=== PATIENT | female | born 1940 | race Caucasian/White ===

== ENCOUNTER 2021-02-06 13:20 | Emergency (ER) | payer MEDICARE, BC ==
[2021-02-06 15:13] LABS: ANION GAP 19.9 mEq/L (7-13); CHLORIDE,CL 102 mmol/L (98-107); SODIUM,NA 138 mmol/L (136-145)
[2021-02-06] MEDS ORDERED: Iopamidol 755 Mg/ML 100 ML Bottle IVPUSH ONE (15:53)
--- NOTE | 2021-02-06 16:37 | EDM.PDOC ---
Scribed by Lena Brink 02/06/21 1636 for Sharron Herbert NP ED HPI GENERAL MEDICAL PROBLEM - General Chief Complaint: Respiratory Problem Stated Complaint: AMBULANCE Time Seen by Provider: 02/06/21 13:40 Source of Information: Reports: Patient, RN, RN Notes Reviewed History Limitations: Reports: No Limitations - History of Present Illness INITIAL COMMENTS - FREE TEXT/NARRATIVE: Patient is an 80-year-old female who presents to ER per [facility] with complaint of increased shortness of breath, body aches and chills. Patient states she was tested positive for COVID on Wednesday, January 29, 2021. Patient states she received immunotherapy on Thursday, February 04, 2021. States she has been feeling worse and worse since then. States she called her PCP and they were out today. She has had chills, body aches, cough and shortness of breath. No fever, nausea, vomiting, diarrhea, and chest pain. Patient states she lives alone. Onset: Gradual Duration: Getting Worse Quality: Reports: Ache Severity: Severe Improves with: Reports: None Worsens with: Reports: None Associated Symptoms: Reports: No Other Symptoms - Related Data Allergies Allergy/AdvReac Type Severity Reaction Status Date / Time No Known Allergies Allergy Verified 02/06/21 13:53 Home Meds: Home Meds Alendronate Sodium 35 mg PO WEEKLY 02/04/21 [History] Benzonatate 100 mg PO ASDIRECTED PRN 02/04/21 [History] Budesonide [Pulmicort Flexhaler] 1 puff INH BID 02/04/21 [History] Calcium Carbonate/Vitamin D3 [Calcium 600-Vit D3 800 Tablet] 1 each PO DAILY 02/04/21 [History] Celecoxib [CeleBREX] 100 mg PO BID 02/04/21 [History] Gabapentin [Neurontin] 200 mg PO TID 02/04/21 [History] Hydrocodone/Acetaminophen [HYDROcodone-Acetaminophen 5-325 MG] 5 mg PO BID 02/04/21 [History] Levothyroxine 75 mcg PO ACBREAKFAST 02/04/21 [History] Lidocaine 5% [Lidoderm 5%] 1 patch TOP ASDIRECTED PRN MDD 700 02/04/21 [History] Omeprazole 20 mg PO DAILY 02/04/21 [History] Zolpidem [Ambien] 5 mg PO BEDTIME 02/04/21 [History] atorvaSTATin [Lipitor] 10 mg PO ASDIRECTED 02/04/21 [History] Past Medical History HEENT History: Reports: Cataract, Impaired Vision Cardiovascular History: Reports: SOB on Exertion Respiratory History: Reports: SOB Genitourinary History: Reports: UTI, Recurrent [employer] COM[employer]IANCE SPECIALIST History: Reports: Endometrial Ablation, Endometriosis Musculoskeletal History: Reports: Arthritis, Back Pain, Chronic, Neck Pain, Chronic, Osteoarthritis, Osteoporosis Endocrine/Metabolic History: Reports: Hypothyroidism, Obesity/BMI 30+, Osteopor osis, Vitamin D Deficiency Oncologic (Cancer) History: Reports: Other (See Below) Other Oncologic History: Endometrial - Infectious Disease History Infectious Disease History: Reports: Chicken Pox, Measles, Mumps, Novel Coronavirus, Rubella - Past Surgical History HEENT Surgical History: Reports: Cataract Surgery GI Surgical History: Reports: Colonoscopy Female Surgical History: Reports: Breast Biopsy, Hysterectomy Social & Family History - Family History Family Medical History: No Pertinent Family History - Tobacco Use Tobacco Use Status *Q: Never Tobacco User - Recreational Drug Use Recreational Drug Use: No ED ROS GENERAL - Review of Systems Review Of Systems: Comprehensive ROS is negative, except as noted in HPI. ED EXAM, GENERAL - Physical Exam Exam: See Below Exam Limited By: No Limitations General Appearance: Alert, Mild Distress Eye Exam: Bilateral Eye: EOMI, Normal Inspection, PERRL Ears: Normal External Exam, Normal Canal, Hearing Grossly Normal, Normal TMs Nose: Normal Inspection, Normal Mucosa, No Blood Throat/Mouth: Normal Inspection, Normal Lips, Normal Teeth, Normal Gums, Normal Oropharynx, Normal Voice, No Airway Compromise Head: Atraumatic, Normocephalic Neck: Normal Inspection, Supple, Non-Tender, Full Range of Motion Respiratory/Chest: No Respiratory Distress, Lungs Clear, Normal Breath Sounds, No Accessory Muscle Use, Chest Non-Tender Cardiovascular: Normal Peripheral Pulses, Regular Rate, Rhythm, No Edema, No Gallop, No JVD, No Murmur, No Rub GI/Abdominal: Normal Bowel Sounds, Soft, Non-Tender, No Organomegaly, No Distention, No Abnormal Bruit, No Mass (Female) Exam: Deferred Rectal (Female) Exam: Deferred Back Exam: Normal Inspection, Full Range of Motion, NT Extremities: Normal Inspection, Normal Range of Motion, Non-Tender, Normal Capillary Refill, No Pedal Edema Neurological: Alert, Oriented, CN II-XII Intact, Normal Cognition, Normal Gait, Normal Reflexes, No Motor/Sensory Deficits Psychiatric: Normal Affect, Normal Mood Skin Exam: Warm, Dry, Intact, Normal Color, No Rash Lymphatic: No Adenopathy #1 Interpretation EKG Date: 02/06/21 Time: 13:32 Rhythm: Other (sinus rhythm) Rate (Beats/Min): 54 EKG Interpretation Comments: LVH with secondary repolarization abnormality. Course - Vital Signs Last Recorded V/S: Last Vital Signs Temp 97.8 F 02/06/21 13:49 Pulse 58 L 02/06/21 18:45 Resp 26 H 02/06/21 18:45 BP 164/57 H 02/06/21 18:45 Pulse Ox 99 02/06/21 18:45 - Orders/Labs/Meds Orders: Active Orders 24 hr Category Date Time Status CULTURE URINE [RM] Stat Lab 02/06/21 15:58 Results Labs: Laboratory Tests 02/06/21 02/06/21 02/06/21 Range/Units 14:40 14:40 14:40 WBC 6.9 (5.0-10.0) 10^3/uL RBC 3.99 L (4.2-5.4) 10^6/uL Hgb 12.1 (12.0-16.0) g/dL Hct 36.8 L (37.0-47.0) % MCV 92.2 (80-100) fL MCH 30.3 (27.0-34.0) pg MCHC 32.9 L (33.0-35.0) g/dL Plt Count 285 (150-450) 10^3/uL Neut % (Auto) 78.1 H (42.2-75.2) % Lymph % (Auto) 13.2 L (20.5-50.1) % [place] % (Auto) 8.0 (2-8) % Eos % (Auto) 0.6 L (1.0-3.0) % Baso % (Auto) 0.1 (0.0-1.0) % D-Dimer, Quantitative 1060 H (0-400) ng/mL Sodium 138 (136-145) mmol/L Potassium 3.9 (3.5-5.1) mmol/L Chloride 102 (98-107) mmol/L Carbon Dioxide 20 L (21-32) mmol/L Anion Gap 19.9 H (7-13) mEq/L BUN 19 H (7-18) mg/dL Creatinine 0.90 (0.55-1.02) mg/dL Est Cr Clr Drug Dosing TNP Estimated GFR (MDRD) > 60 BUN/Creatinine Ratio 21.1 (No establ ref range) Glucose 91 (70-99) mg/dL Calcium 9.2 (8.5-10.1) mg/dL Total Bilirubin 0.4 (0.2-1.0) mg/dL AST 20 (15-37) U/L ALT 24 (14-59) U/L Alkaline Phosphatase 90 (46-116) U/L Lactate Dehydrogenase 255 H (81-234) U/L Troponin I High Sens 26 (<=51) pg/mL C-Reactive Protein 6.1 H (0.0-0.9) mg/dL Total Protein 7.9 (6.4-8.2) g/dL Albumin 3.4 (3.4-5.0) g/dL Globulin 4.5 Albumin/Globulin Ratio 0.8 Urine Color (YELLOW) Urine Appearance (CLEAR) Urine pH (5.0-9.0) Ur Specific [place] (1.005-1.030) Urine Protein (NEGATIVE) Urine Glucose (UA) (NEGATIVE) Urine Ketones (NEGATIVE) Urine Occult Blood (NEGATIVE) Urine Nitrite (NEGATIVE) Urine Bilirubin (NEGATIVE) Urine Urobilinogen (0.2-1.0) mg/dL Ur Leukocyte Esterase (NEGATIVE) Urine RBC (0-5) /HPF Urine WBC (0-5/HPF) /HPF Ur Epithelial Cells (NOT SEEN) /HPF Urine Bacteria (0-FEW/HPF) /HPF 02/06/21 Range/Units 15:58 WBC (5.0-10.0) 10^3/uL RBC (4.2-5.4) 10^6/uL Hgb (12.0-16.0) g/dL Hct (37.0-47.0) % MCV (80-100) fL MCH (27.0-34.0) pg MCHC (33.0-35.0) g/dL Plt Count (150-450) 10^3/uL Neut % (Auto) (42.2-75.2) % Lymph % (Auto) (20.5-50.1) % [place] % (Auto) (2-8) % Eos % (Auto) (1.0-3.0) % Baso % (Auto) (0.0-1.0) % D-Dimer, Quantitative (0-400) ng/mL Sodium (136-145) mmol/L Potassium (3.5-5.1) mmol/L Chloride (98-107) mmol/L Carbon Dioxide (21-32) mmol/L Anion Gap (7-13) mEq/L BUN (7-18) mg/dL Creatinine (0.55-1.02) mg/dL Est Cr Clr Drug Dosing Estimated GFR (MDRD) BUN/Creatinine Ratio (No establ ref range) Glucose (70-99) mg/dL Calcium (8.5-10.1) mg/dL Total Bilirubin (0.2-1.0) mg/dL AST (15-37) U/L ALT (14-59) U/L Alkaline Phosphatase (46-116) U/L Lactate Dehydrogenase (81-234) U/L Troponin I High Sens (<=51) pg/mL C-Reactive Protein (0.0-0.9) mg/dL Total Protein (6.4-8.2) g/dL Albumin (3.4-5.0) g/dL Globulin Albumin/Globulin Ratio Urine Color [place] (YELLOW) Urine Appearance Cloudy (CLEAR) Urine pH 5.5 (5.0-9.0) Ur Specific [place] 1.020 (1.005-1.030) Urine Protein 100 H (NEGATIVE) Urine Glucose (UA) 100 H (NEGATIVE) Urine Ketones 80 H (NEGATIVE) Urine Occult Blood Trace-intact H (NEGATIVE) Urine Nitrite Positive H (NEGATIVE) Urine Bilirubin Small H (NEGATIVE) Urine Urobilinogen 1.0 (0.2-1.0) mg/dL Ur Leukocyte Esterase Large H (NEGATIVE) Urine RBC 5-10 H (0-5) /HPF Urine WBC Semi-packed H (0-5/HPF) /HPF Ur Epithelial Cells Few (NOT SEEN) /HPF Urine Bacteria Many H (0-FEW/HPF) /HPF Meds: Medications Discontinued Medications Generic Name Dose Route Start Last Admin Trade Name Freq PRN Reason Stop Dose Admin Sodium Chloride 1,000 mls @ 500 mls/hr 02/06/21 16:53 02/06/21 18:50 Normal Saline IV 02/06/21 18:52 999 mls/hr .BOLUS ONE Infusion Levofloxacin/Dextrose 500 mg/ 100 mls @ 100 mls/hr 02/06/21 16:53 02/06/21 17:15 Premix IV 02/06/21 17:52 100 mls/hr ONETIME ONE Administration Iopamidol 100 ml 02/06/21 15:53 02/06/21 16:09 Iopamidol 755 Mg/Ml 100 Ml Bottle IVPUSH 02/06/21 15:54 63 ml ONETIME ONE Administration Methylprednisolone Sodium Succinate 125 mg 02/06/21 16:53 02/06/21 17:12 Methylprednisolone Sodium Succinate 125 Mg/2 Ml Sdv IVPUSH 02/06/21 16:54 125 mg ONETIME ONE Administration - Radiology Interpretation Free Text/Narrative:: Chest CT with contrast: Covid Pneumonia No PE See rad report Departure - Departure Time of Disposition: 19:56 Disposition: Home, Self-Care 01 Condition: Fair Clinical Impression: Pneumonia due to COVID-19 virus UTI (urinary tract infection) Qualifiers: Urinary tract infection type: acute cystitis Hematuria presence: with hematuria Qualified Code(s): N30.01 - Acute cystitis with hematuria - Discharge Information *PRESCRIPTION DRUG MONITORING PROGRAM REVIEWED*: No *COPY OF PRESCRIPTION DRUG MONITORING REPORT IN PATIENT LISA: No Instructions: Urinary Tract Infection, Adult, [id number], Community-Acquired Pneumonia, Adult, [id number], COVID-19: What to Do If You Are Sick- [facility] (07/31/2020) Forms: ED Department Discharge Additional Instructions: Rx: Levaquin 500 mg orally once daily x7 days Prednisone 20 mg 2 tablets orally once daily for 5 days Both medications listed above may be started tomorrow, 02/07/2021 Drink plenty of water Follow-up with your primary care provider Return to the ER with any worsening of symptoms - My Orders Last 24 Hours: My Active Orders 02/06/21 15:58 CULTURE URINE [RM] Stat - Assessment/Plan Last 24 Hours: My Active Orders 02/06/21 15:58 CULTURE URINE [RM] Stat I have read and agree with the documentation that has been completed regarding this visit. By signing this record, I attest that the documentation was completed in my physical presence and is an accurate record of the encounter.
--- NOTE | 2021-02-06 16:46 | CT ---
EXAMINATION: Chest w Cont SEX: Female AGE: 80 years CLINICAL HISTORY: 80-year-old 158 pound female with elevated serum D dimer (1080) and positive COVID19 test. Scan technique: Volume acquisition of data from the chest (bony thorax, lungs and mediastinum) obtained with the patient lying supine on the Siemens multislice scanner [place], [place]. All data archived in the PACS system for storage, reformatting axial/sagittal/coronal planes and study. Interpretation: Abnormal. 1. *Multiple patchy "groundglass" interstitial lung densities identified throughout the periphery of both lung bal[place] (greatest in the bases) characteristic of COVID19 vasculitis/pneumonitis. 2. No intraluminal filling defects or thrombus identified in the pulmonary artery circulation. No peripheral pleural-based wedge shaped ([place]) infarcts. No focal lobar oligemia. No dependent pleural effusions. 3. Normal cardiac silhouette for age. No pericardial effusions. No pulmonary vascular congestion or alveolar edema. 4. No suspicious lung mass or hilar/mediastinal lymphadenopathy. 5. No alveolar infiltrates, air bronchograms, atelectasis or collapse. 6. No pneumothorax or pneumomediastinum. Midline tracheal bronchial airway unremarkable. CONCLUSION: Abnormal CT pattern consistent with COVID pneumonia. No sign of mainstem pulmonary artery embolism or thrombus. No heart failure, alveolar infiltrate, atelectasis or collapse.
[2021-02-06] MEDS ORDERED: Levofloxacin/Dextrose 5%-Water 500 MG in Premix Bag 1 BAG IV ONE (16:53)
[2021-02-06] MEDS ORDERED: methylPREDNISolone Sodium Succinate 125 MG/2 ML SDV IVPUSH ONE (16:53)
[2021-02-06] MEDS ORDERED: Sodium Chloride 0.9% 1,000 ML IV ONE (16:53)
== END 2021-02-06 19:50 | disposition home or self-care (01) ==
LOC: DL.ED 13:20
DX: U07.1 COVID-19 (principal); J12.82 Pneumonia due to coronavirus disease 2019; N30.01 Acute cystitis with hematuria; E03.9 Hypothyroidism, unspecified; E66.9 Obesity, unspecified; Z68.30 Body mass index [BMI] 30.0-30.9, adult; Z79.899 Other long term (current) drug therapy
CPT/HCPCS: 36415; 71260; 80053; 81001; 83615; 84484; 85025; 85379; 86140; 87086; 87088; 87186; 93005; 96365; 96375; 99285; J1956; J2930; J7030; Q9967

== ENCOUNTER 2024-02-27 19:49 | Emergency (ER) | payer MEDICARE, BC ==
[2024-02-27] MEDS: Ondansetron 4 MG/2 ML SDV IVPUSH ONE (20:13)
[2024-02-27] MEDS: Sodium Chloride 0.9% 1,000 ML IV ONE (20:14)
[2024-02-27] MEDS: Morphine 4 MG/ML Syringe IVPUSH ONE (20:14)
[2024-02-27 20:19] LABS: BASOPHILS PERCENT AUTO 0.1 % (0.0-1.0); EOSINOPHILS PERCENT AUTO 0.3 % (1.0-3.0); HEMATOCRIT 37.4 % (37.0-47.0); HEMOGLOBIN 11.8 g/dL (12.0-16.0); LYMPHOCYTES PERCENT AUTO 10.7 % (20.5-50.1); MEAN CORPUSCULAR HEMOGLOBIN 29.2 pg (27.0-34.0); MEAN CORPUSCULAR HGB CONC 31.6 g/dL (33.0-35.0); MEAN CORPUSCULAR VOLUME 92.6 fL (80-100); NEUTROPHILS PERCENT AUTO 80.9 % (42.2-75.2); PLATELET COUNT,PLT 367 10^3/uL (150-450); RED BLOOD CELL COUNT 4.04 10^6/uL (4.2-5.4); WHITE BLOOD CELL COUNT,WBC 16.5 10^3/uL (5.0-10.0)
[2024-02-27 20:31] LABS: LACTIC ACID 1.5 mmol/L (0.4-2.0)
[2024-02-27 20:37] LABS: ALANINE AMINOTRANSFERASE,ALT 19 U/L (14-59); ALBUMIN 2.8 g/dL (3.4-5.0); ALKALINE PHOSPHATASE 104 U/L (46-116); ASPARTATE AMNIOTRANSFERASE,AST 14 U/L (15-37); BILIRUBIN TOTAL 0.6 mg/dL (0.2-1.0); BLOOD UREA NITROGEN,BUN 17 mg/dL (7-18); BUN/CREATININE RATIO 18.5 (No establ ref range); CALCIUM 8.9 mg/dL (8.5-10.1); CARBON DIOXIDE,CO2 25 mmol/L (21-32); CHLORIDE,CL 100 mmol/L (98-107); CREATININE 0.92 mg/dL (0.55-1.02); GLUCOSE RANDOM 106 mg/dL (70-99); SODIUM,NA 137 mmol/L (136-145)
[2024-02-27 20:40] LABS: A/G RATIO 0.67; ESTIMATED GFR 61 mL/min (>=60); ETHANOL BLOOD MEDICAL < 3 mg/dL (0)
[2024-02-27] MEDS: Iopamidol 612 MG/ML 100 ML Bottle IVPUSH ONE (20:50)
[2024-02-27 21:23] LABS: APPEARANCE,URINE CLEAR (CLEAR); BILIRUBIN,URINE NEGATIVE (NEGATIVE); COLOR,URINE YELLOW (YELLOW); GLUCOSE,URINE NEGATIVE (NEGATIVE); KETONES,URINE NEGATIVE (NEGATIVE); LEUKOCYTE ESTERASE,URINE NEGATIVE (NEGATIVE); NITRITE,URINE NEGATIVE (NEGATIVE); OCCULT BLOOD,URINE NEGATIVE (NEGATIVE); PH,URINE 6.5 (5.0-9.0); PROTEIN,URINE NEGATIVE (NEGATIVE); UROBILINOGEN,URINE 0.2 mg/dL (0.2-1.0)
[2024-02-27] MEDS: Amoxicillin/Clavulanate K 875-125 MG Tab PO ONE (23:19)
[2024-02-27] MEDS: Take Home: Acetaminophen/HYDROcodone 325-5 MG, 5 Tab Pack PO ONE (23:20)
== END 2024-02-27 23:32 | disposition home or self-care (01) ==
LOC: DL.ED 19:49
DX: K57.32 Diverticulitis of large intestine without perforation or abscess without bleeding (principal); E03.9 Hypothyroidism, unspecified; E66.9 Obesity, unspecified; Z79.899 Other long term (current) drug therapy
CPT/HCPCS: 36415; 74177; 80053; 80307; 81003; 83605; 85025; 87040; 94762; 96361; 96374; 96375; 99284; 99285-25; A9270-GY; J2270; J2405; J7030; Q9967

== ENCOUNTER 2024-02-29 15:35 | Inpatient (IN) | payer MEDICARE, BC ==
[2024-02-29] MEDS: Iopamidol 612 MG/ML 100 ML Bottle IVPUSH ONE (16:29)
[2024-02-29] MEDS: Ondansetron 4 MG/2 ML SDV IVPUSH ONE (16:58)
[2024-02-29] MEDS: fentaNYL 100 MCG/2 ML SDV IVPUSH ONE (16:58)
[2024-02-29 17:02] LABS: BASOPHILS PERCENT AUTO 0.1 % (0.0-1.0); EOSINOPHILS PERCENT AUTO 0.9 % (1.0-3.0); HEMATOCRIT 35.8 % (37.0-47.0); HEMOGLOBIN 11.1 g/dL (12.0-16.0); MEAN CORPUSCULAR HEMOGLOBIN 29.4 pg (27.0-34.0); MEAN CORPUSCULAR VOLUME 94.7 fL (80-100); PLATELET COUNT,PLT 367 10^3/uL (150-450); RED BLOOD CELL COUNT 3.78 10^6/uL (4.2-5.4); WHITE BLOOD CELL COUNT,WBC 18.2 10^3/uL (5.0-10.0)
[2024-02-29] MEDS: Sodium Chloride 0.9% 500 ML IV ONE (17:17)
[2024-02-29 17:24] LABS: ALANINE AMINOTRANSFERASE,ALT 15 U/L (14-59); ALBUMIN 2.4 g/dL (3.4-5.0); ALKALINE PHOSPHATASE 120 U/L (46-116); ANION GAP 17.2 mEq/L (7-13); ASPARTATE AMNIOTRANSFERASE,AST 13 U/L (15-37); BILIRUBIN TOTAL 0.5 mg/dL (0.2-1.0); BLOOD UREA NITROGEN,BUN 17 mg/dL (7-18); BUN/CREATININE RATIO 18.1 (No establ ref range); CALCIUM 9.1 mg/dL (8.5-10.1); CARBON DIOXIDE,CO2 23 mmol/L (21-32); CHLORIDE,CL 103 mmol/L (98-107); CREATININE 0.94 mg/dL (0.55-1.02); GLUCOSE RANDOM 68 mg/dL (70-99); LIPASE 12 U/L (16-77); MAGNESIUM 2.5 mg/dL (1.8-2.4); POTASSIUM,K 4.2 mmol/L (3.5-5.1); PROTEIN TOTAL,TP 6.9 g/dL (6.4-8.2); SODIUM,NA 139 mmol/L (136-145)
[2024-02-29 17:25] LABS: A/G RATIO 0.53; ESTIMATED GFR 60 mL/min (>=60)
[2024-02-29 17:34] LABS: C-REACTIVE PROTEIN > 25.00 ng/dL (<=0.50)
[2024-02-29] MEDS: metroNIDAZOLE/Normal Saline 500 MG in Premix Bag 1 BAG IV ONE (17:46)
[2024-02-29] MEDS ORDERED: Docusate Sodium 100 MG Cap PO PRN (19:57)
[2024-02-29] MEDS ORDERED: Acetaminophen 325 MG Tab PO PRN (19:57)
[2024-02-29] MEDS ORDERED: Bisacodyl 5 MG Tab PO PRN (19:57)
[2024-02-29] MEDS: Ciprofloxacin in D5W 400 MG in Premix Bag 1 BAG IV ONE ×2 (20:05→20:08)
[2024-02-29] MEDS ORDERED: Zolpidem 5 MG Tab PO PRN (20:11)
[2024-02-29] MEDS: HYDROmorphone 0.5 MG/0.5 ML Syringe IVPUSH PRN (20:40)
[2024-02-29] MEDS: Ondansetron 4 MG/2 ML SDV IVPUSH PRN (21:17)
[2024-02-29] MEDS: Sodium Chloride 0.9% 1,000 ML IV SCH (22:03)
[2024-03-01] MEDS: metroNIDAZOLE/Normal Saline 500 MG in Premix Bag 1 BAG IV SCH (01:00)
[2024-03-01] MEDS: HYDROmorphone 1 MG/ML Syringe IVPUSH PRN (02:01)
[2024-03-01] MEDS: Metoclopramide 10 MG/2 ML SDV IVPUSH PRN (02:02)
[2024-03-01] MEDS: Metoclopramide 10 MG/2 ML SDV ONE (02:05)
[2024-03-01] MEDS: Ketorolac 30 MG/ML SDV IVPUSH PRN (02:10)
[2024-03-01 06:31] LABS: HEMATOCRIT 31.7 % (37.0-47.0); HEMOGLOBIN 9.8 g/dL (12.0-16.0); MEAN CORPUSCULAR HEMOGLOBIN 29.3 pg (27.0-34.0); MEAN CORPUSCULAR HGB CONC 30.9 g/dL (33.0-35.0); MEAN CORPUSCULAR VOLUME 94.9 fL (80-100); PLATELET COUNT,PLT 410 10^3/uL (150-450); RED BLOOD CELL COUNT 3.34 10^6/uL (4.2-5.4); WHITE BLOOD CELL COUNT,WBC 22.6 10^3/uL (5.0-10.0)
[2024-03-01 06:42] LABS: ANION GAP 19.9 mEq/L (7-13); BASOPHILS PERCENT AUTO 0.1 % (0.0-1.0); BLOOD UREA NITROGEN,BUN 14 mg/dL (7-18); CALCIUM 8.4 mg/dL (8.5-10.1); CARBON DIOXIDE,CO2 18 mmol/L (21-32); CHLORIDE,CL 104 mmol/L (98-107); CREATININE 0.89 mg/dL (0.55-1.02); EOSINOPHILS PERCENT AUTO 0.3 % (1.0-3.0); EST CRCL DRUG DOSING (CG) 38.92 mL/min; GLUCOSE RANDOM 86 mg/dL (70-99); LYMPHOCYTES PERCENT AUTO 5.4 % (20.5-50.1); MONOCYTES PERCENT AUTO 9.1 % (2-8); NEUTROPHILS PERCENT AUTO 85.1 % (42.2-75.2); POTASSIUM,K 3.9 mmol/L (3.5-5.1); SODIUM,NA 138 mmol/L (136-145)
[2024-03-01 06:43] LABS: C-REACTIVE PROTEIN > 25.00 ng/dL (<=0.50); ESTIMATED GFR 64 mL/min (>=60)
[2024-03-01 06:57] LABS: EOSINOPHILS PERCENT MAN 3 % (1-3); LYMPHOCYTES PERCENT MAN 7 % (20-50); MONOCYTES PERCENT MAN 12 % (2-8); SEG NEUTROPHILS PERCENT MAN 78 % (42-75)
[2024-03-01] MEDS: Saccharomyces Boulardii (Probiotic) 250 MG Cap PO SCH (07:49)
[2024-03-01] MEDS: Furosemide 40 MG Tab PO SCH (07:50)
[2024-03-01] MEDS: Ferrous Sulfate 325 MG Tab PO SCH (07:50)
[2024-03-01] MEDS: atorvaSTATin 10 MG Tab PO SCH (07:50)
[2024-03-01] MEDS: Omeprazole 20 MG Cap.CR PO SCH (07:50)
[2024-03-01] MEDS: Celecoxib 100 MG Cap PO SCH (07:51)
[2024-03-01] MEDS: Enoxaparin 40 MG/0.4 ML Syringe SUBCUT SCH (07:51)
[2024-03-01] MEDS: Gabapentin 300 MG Cap PO SCH (07:51)
[2024-03-01] MEDS: Ciprofloxacin in D5W 400 MG in Premix Bag 1 BAG IV SCH (07:51)
[2024-03-01] MEDS: Aspirin 81 MG Tab.Chew PO SCH (07:51)
[2024-03-01] MEDS: Budesonide 0.5 MG/2 ML Neb Susp INH SCH (07:52)
[2024-03-01] MEDS: Lidocaine 5% 700 MG Patch TOP SCH (08:17)
[2024-03-01] MEDS: Dextrose 5% in Water 1,000 ML IV SCH (08:30)
[2024-03-01] MEDS: Alendronate Sodium [Alendronate Sodium] 35 MG Tablet PO SCH (08:37)
[2024-03-01] MEDS ORDERED: Acetaminophen/HYDROcodone 325-5 MG Tab PO SCH (09:00)
[2024-03-01] MEDS: Sodium Chloride 0.9% 10 ML Syringe FLUSH PRN (16:40)
[2024-03-01] MEDS: Zolpidem 5 MG Tab PO SCH (21:49)
[2024-03-02] MEDS: Levothyroxine 75 MCG Tab PO SCH (04:15)
[2024-03-02 08:08] LABS: HEMATOCRIT 27.2 % (37.0-47.0); HEMOGLOBIN 8.6 g/dL (12.0-16.0); MEAN CORPUSCULAR HEMOGLOBIN 29.4 pg (27.0-34.0); MEAN CORPUSCULAR HGB CONC 31.6 g/dL (33.0-35.0); MEAN CORPUSCULAR VOLUME 92.8 fL (80-100); PLATELET COUNT,PLT 374 10^3/uL (150-450); RED BLOOD CELL COUNT 2.93 10^6/uL (4.2-5.4); WHITE BLOOD CELL COUNT,WBC 20.4 10^3/uL (5.0-10.0)
[2024-03-02 08:12] LABS: BASOPHILS PERCENT AUTO 0.1 % (0.0-1.0); EOSINOPHILS PERCENT AUTO 0.8 % (1.0-3.0); LYMPHOCYTES PERCENT AUTO 6.2 % (20.5-50.1); MONOCYTES PERCENT AUTO 10.3 % (2-8); NEUTROPHILS PERCENT AUTO 82.6 % (42.2-75.2)
[2024-03-02 08:23] LABS: LYMPHOCYTES PERCENT MAN 9 % (20-50); MONOCYTES PERCENT MAN 8 % (2-8); SEG NEUTROPHILS PERCENT MAN 83 % (42-75)
[2024-03-02 08:29] LABS: A/G RATIO 0.55; ALBUMIN 2.1 g/dL (3.4-5.0); BILIRUBIN TOTAL 0.3 mg/dL (0.2-1.0); BUN/CREATININE RATIO 8.7 (No establ ref range); C-REACTIVE PROTEIN 23.13 ng/dL (<=0.50); CREATININE 1.03 mg/dL (0.55-1.02); EST CRCL DRUG DOSING (CG) 33.63 mL/min; MAGNESIUM 1.9 mg/dL (1.8-2.4); PROTEIN TOTAL,TP 5.9 g/dL (6.4-8.2)
[2024-03-02] MEDS: Potassium Chloride 10 MEQ Tab.ER PO ONE (11:16)
[2024-03-02] MEDS: Acetaminophen/HYDROcodone 325-5 MG Tab PO PRN (14:05)
[2024-03-03 06:44] LABS: ALBUMIN 2.1 g/dL (3.4-5.0); BILIRUBIN TOTAL 0.3 mg/dL (0.2-1.0); C-REACTIVE PROTEIN 21.5 ng/dL (<=0.50); CALCIUM 8.3 mg/dL (8.5-10.1); CREATININE 0.9 mg/dL (0.55-1.02); EST CRCL DRUG DOSING (CG) 38.49 mL/min
[2024-03-03 06:48] LABS: HEMATOCRIT 29.5 % (37.0-47.0); HEMOGLOBIN 9.2 g/dL (12.0-16.0); MEAN CORPUSCULAR HEMOGLOBIN 29.2 pg (27.0-34.0); MEAN CORPUSCULAR HGB CONC 31.2 g/dL (33.0-35.0); MEAN CORPUSCULAR VOLUME 93.7 fL (80-100); PLATELET COUNT,PLT 393 10^3/uL (150-450); RED BLOOD CELL COUNT 3.15 10^6/uL (4.2-5.4); WHITE BLOOD CELL COUNT,WBC 18.1 10^3/uL (5.0-10.0)
[2024-03-03 06:51] LABS: BASOPHILS PERCENT AUTO 0.1 % (0.0-1.0); EOSINOPHILS PERCENT AUTO 0.8 % (1.0-3.0); LYMPHOCYTES PERCENT AUTO 6.3 % (20.5-50.1); MONOCYTES PERCENT AUTO 12.4 % (2-8); NEUTROPHILS PERCENT AUTO 80.4 % (42.2-75.2)
[2024-03-03 06:56] LABS: A/G RATIO 0.54
[2024-03-03 07:44] LABS: BAND PERCENT MAN 2 %; EOSINOPHILS PERCENT MAN 1 % (1-3); LYMPHOCYTES PERCENT MAN 14 % (20-50); MONOCYTES PERCENT MAN 8 % (2-8); SEG NEUTROPHILS PERCENT MAN 75 % (42-75)
[2024-03-03] MEDS ORDERED: Budesonide 0.5 MG/2 ML Neb Susp INH SCH (09:00)
[2024-03-03] MEDS: Iopamidol 612 MG/ML 100 ML Bottle IVPUSH ONE ×2 (12:26→12:27)
[2024-03-04 06:47] LABS: EOSINOPHILS PERCENT AUTO 1.2 % (1.0-3.0); HEMATOCRIT 29.7 % (37.0-47.0); HEMOGLOBIN 9.3 g/dL (12.0-16.0); LYMPHOCYTES PERCENT AUTO 8.9 % (20.5-50.1); MEAN CORPUSCULAR HEMOGLOBIN 29.1 pg (27.0-34.0); MEAN CORPUSCULAR HGB CONC 31.3 g/dL (33.0-35.0); MEAN CORPUSCULAR VOLUME 92.8 fL (80-100); MONOCYTES PERCENT AUTO 12.3 % (2-8); NEUTROPHILS PERCENT AUTO 77.5 % (42.2-75.2); PLATELET COUNT,PLT 416 10^3/uL (150-450); WHITE BLOOD CELL COUNT,WBC 14.7 10^3/uL (5.0-10.0)
[2024-03-04 06:55] LABS: BASOPHILS PERCENT AUTO 0.1 % (0.0-1.0)
[2024-03-04 07:14] LABS: ALBUMIN 2.2 g/dL (3.4-5.0); ANION GAP 13.1 mEq/L (7-13); BILIRUBIN TOTAL 0.3 mg/dL (0.2-1.0); BUN/CREATININE RATIO 9.7 (No establ ref range); C-REACTIVE PROTEIN 16.84 ng/dL (<=0.50); CALCIUM 8.5 mg/dL (8.5-10.1); CREATININE 0.93 mg/dL (0.55-1.02); EST CRCL DRUG DOSING (CG) 37.25 mL/min; POTASSIUM,K 4.1 mmol/L (3.5-5.1)
[2024-03-04 07:18] LABS: A/G RATIO 0.58
[2024-03-04] MEDS: Furosemide 40 MG Tab PO SCH (08:09)
[2024-03-05 06:46] LABS: HEMOGLOBIN 10.2 g/dL (12.0-16.0); MEAN CORPUSCULAR HEMOGLOBIN 29.5 pg (27.0-34.0); MEAN CORPUSCULAR HGB CONC 31.9 g/dL (33.0-35.0); MEAN CORPUSCULAR VOLUME 92.5 fL (80-100); PLATELET COUNT,PLT 473 10^3/uL (150-450); RED BLOOD CELL COUNT 3.46 10^6/uL (4.2-5.4)
[2024-03-05 06:54] LABS: BASOPHILS PERCENT AUTO 0.2 % (0.0-1.0); EOSINOPHILS PERCENT AUTO 1.2 % (1.0-3.0); LYMPHOCYTES PERCENT AUTO 11.3 % (20.5-50.1); MONOCYTES PERCENT AUTO 14.1 % (2-8); NEUTROPHILS PERCENT AUTO 73.2 % (42.2-75.2)
[2024-03-05 07:03] LABS: ALBUMIN 2.3 g/dL (3.4-5.0); ANION GAP 14.7 mEq/L (7-13); BILIRUBIN TOTAL 0.3 mg/dL (0.2-1.0); BUN/CREATININE RATIO 10.8 (No establ ref range); C-REACTIVE PROTEIN 10.89 ng/dL (<=0.50); CALCIUM 8.5 mg/dL (8.5-10.1); CREATININE 1.2 mg/dL (0.55-1.02); EST CRCL DRUG DOSING (CG) 28.87 mL/min; MAGNESIUM 1.7 mg/dL (1.8-2.4); POTASSIUM,K 3.7 mmol/L (3.5-5.1)
[2024-03-05 07:31] LABS: A/G RATIO 0.62
[2024-03-05 08:03] LABS: BAND PERCENT MAN 7 %; LYMPHOCYTES PERCENT MAN 15 % (20-50); MONOCYTES PERCENT MAN 11 % (2-8); NRBC MANUAL 1 /100WBC; SEG NEUTROPHILS PERCENT MAN 67 % (42-75)
[2024-03-05] MEDS: Sodium Chloride 0.9% 1,000 ML IV SCH (12:02)
[2024-03-06] MEDS: Simethicone 80 MG Tab.Chew PO PRN (02:58)
[2024-03-06 06:56] LABS: BASOPHILS PERCENT AUTO 0.2 % (0.0-1.0); HEMATOCRIT 32.1 % (37.0-47.0); HEMOGLOBIN 10.2 g/dL (12.0-16.0); LYMPHOCYTES PERCENT AUTO 12.5 % (20.5-50.1); MEAN CORPUSCULAR HEMOGLOBIN 29.3 pg (27.0-34.0); MEAN CORPUSCULAR HGB CONC 31.8 g/dL (33.0-35.0); MEAN CORPUSCULAR VOLUME 92.2 fL (80-100); MONOCYTES PERCENT AUTO 11.6 % (2-8); NEUTROPHILS PERCENT AUTO 74.7 % (42.2-75.2); PLATELET COUNT,PLT 491 10^3/uL (150-450); RED BLOOD CELL COUNT 3.48 10^6/uL (4.2-5.4)
[2024-03-06 07:23] LABS: ALBUMIN 2.3 g/dL (3.4-5.0); ANION GAP 13.7 mEq/L (7-13); BILIRUBIN TOTAL 0.3 mg/dL (0.2-1.0); BUN/CREATININE RATIO 10.8 (No establ ref range); C-REACTIVE PROTEIN 7.48 ng/dL (<=0.50); CALCIUM 8.5 mg/dL (8.5-10.1); CREATININE 1.02 mg/dL (0.55-1.02); EST CRCL DRUG DOSING (CG) 33.96 mL/min; MAGNESIUM 1.6 mg/dL (1.8-2.4); POTASSIUM,K 3.7 mmol/L (3.5-5.1)
[2024-03-06 07:24] LABS: A/G RATIO 0.62
[2024-03-06] MEDS: Ciprofloxacin 500 MG Tab PO ONE (10:26)
[2024-03-06] MEDS: Magnesium Oxide 400 MG Tab PO ONE (10:26)
[2024-03-06] MEDS: metroNIDAZOLE 250 MG Tab PO ONE (10:26)
== END 2024-03-06 12:35 | disposition home or self-care (01) | DRG 392 ==
LOC: DL.ED 15:35 → DL.MS 18:29
PROVIDERS: ADMIT Internal Medicine; ATTEND Internal Medicine
DX: K57.32 Diverticulitis of large intestine without perforation or abscess without bleeding (principal); Z66 Do not resuscitate; N28.9 Disorder of kidney and ureter, unspecified; H54.7 Unspecified visual loss; M19.90 Unspecified osteoarthritis, unspecified site; M54.2 Cervicalgia; G89.29 Other chronic pain; Z79.890 Hormone replacement therapy; Z79.891 Long term (current) use of opiate analgesic; Z79.2 Long term (current) use of antibiotics; Z68.27 Body mass index [BMI] 27.0-27.9, adult; M81.0 Age-related osteoporosis without current pathological fracture; E03.9 Hypothyroidism, unspecified; E66.9 Obesity, unspecified; K52.9 Noninfective gastroenteritis and colitis, unspecified; D72.825 Bandemia; G47.00 Insomnia, unspecified; E83.52 Hypercalcemia; E83.42 Hypomagnesemia; E87.6 Hypokalemia; R79.89 Other specified abnormal findings of blood chemistry; E11.65 Type 2 diabetes mellitus with hyperglycemia; Z79.899 Other long term (current) drug therapy; Z87.440 Personal history of urinary (tract) infections; Z68.25 Body mass index [BMI] 25.0-25.9, adult; Z86.16 Personal history of COVID-19; Z98.49 Cataract extraction status, unspecified eye; Z90.710 Acquired absence of both cervix and uterus; Z98.890 Other specified postprocedural states
CPT/HCPCS: 36415; 74177; 80053; 83605; 83690; 83735; 84484; 85025; 86140; 96365; 96375; 99285; J1836; J2405; J3010; J7040; Q9967; 80048; 82947; 94640; 99223; 99232; 99233; 99238; A9270-GY; J0744; J1171; J1650; J1885; J2765; J3490; J7030; J7060

== ENCOUNTER 2024-03-06 16:39 | Inpatient (IN) | payer MEDICARE, BC ==
[2024-03-06] MEDS: Sodium Chloride 0.9% 1,000 ML IV ONE (17:20)
[2024-03-06] MEDS: Diltiazem 25 MG/5 ML SDV IVPUSH ONE (17:28)
[2024-03-06 17:32] LABS: HEMATOCRIT 30.5 % (37.0-47.0); HEMOGLOBIN 9.8 g/dL (12.0-16.0); MEAN CORPUSCULAR HEMOGLOBIN 29.3 pg (27.0-34.0); MEAN CORPUSCULAR HGB CONC 32.1 g/dL (33.0-35.0); MEAN CORPUSCULAR VOLUME 91.3 fL (80-100); PLATELET COUNT,PLT 502 10^3/uL (150-450); RED BLOOD CELL COUNT 3.34 10^6/uL (4.2-5.4); WHITE BLOOD CELL COUNT,WBC 13.6 10^3/uL (5.0-10.0)
[2024-03-06] MEDS: Sodium Chloride 0.9% 10 ML Syringe FLUSH PRN (17:33)
[2024-03-06 17:36] LABS: BASOPHILS PERCENT AUTO 0.2 % (0.0-1.0); EOSINOPHILS PERCENT AUTO 0.6 % (1.0-3.0); LYMPHOCYTES PERCENT AUTO 10.1 % (20.5-50.1); MONOCYTES PERCENT AUTO 10.7 % (2-8); NEUTROPHILS PERCENT AUTO 78.4 % (42.2-75.2)
[2024-03-06 17:47] LABS: BAND PERCENT MAN 2 %; EOSINOPHILS PERCENT MAN 1 % (1-3); INR 1.1 (0.9-1.2); LYMPHOCYTES PERCENT MAN 11 % (20-50); MONOCYTES PERCENT MAN 8 % (2-8); PROTHROMBIN TIME 11.2 SEC (9.0-12.0); SEG NEUTROPHILS PERCENT MAN 78 % (42-75)
[2024-03-06 17:53] LABS: A/G RATIO 0.71; ALBUMIN 2.5 g/dL (3.4-5.0); ANION GAP 17.3 mEq/L (7-13); BILIRUBIN TOTAL 0.3 mg/dL (0.2-1.0); BUN/CREATININE RATIO 10.8 (No establ ref range); C-REACTIVE PROTEIN 6.88 ng/dL (<=0.50); CALCIUM 8.8 mg/dL (8.5-10.1); CREATININE 1.02 mg/dL (0.55-1.02); EST CRCL DRUG DOSING (CG) 29.49 mL/min; MAGNESIUM 1.5 mg/dL (1.8-2.4); POTASSIUM,K 3.3 mmol/L (3.5-5.1)
[2024-03-06 17:56] LABS: LACTIC ACID 1.3 mmol/L (0.4-2.0)
[2024-03-06] MEDS: Magnesium Sulfate/Water Premix 2 GM in Premix Bag 1 BAG IV ONE (18:11)
[2024-03-06] MEDS: Potassium Chloride 10 MEQ Tab.ER PO ONE (18:11)
[2024-03-06 18:13] LABS: APPEARANCE,URINE SLIGHTLY CLOUDY (CLEAR); BILIRUBIN,URINE NEGATIVE (NEGATIVE); COLOR,URINE YELLOW (YELLOW); GLUCOSE,URINE NEGATIVE (NEGATIVE); KETONES,URINE 15 (NEGATIVE); LEUKOCYTE ESTERASE,URINE TRACE (NEGATIVE); NITRITE,URINE NEGATIVE (NEGATIVE); OCCULT BLOOD,URINE NEGATIVE (NEGATIVE); PROTEIN,URINE NEGATIVE (NEGATIVE); UROBILINOGEN,URINE 0.2 mg/dL (0.2-1.0)
[2024-03-06 18:22] LABS: BACTERIA,URINE FEW /HPF (0-FEW/HPF); EPITHELIAL CELLS,URINE FEW /HPF (NOT SEEN); YEAST,URINE FEW /HPF (NOT SEEN)
[2024-03-06 18:23] LABS: RBC,URINE 0-5 /HPF (0-5)
[2024-03-06 19:00] LABS: T4 FREE 1.4 ng/dL (0.76-1.46); TSH ULTRASENSITIVE 4.27 uIU/mL (0.36-3.74)
[2024-03-06] MEDS ORDERED: Acetaminophen 325 MG Tab PO PRN (19:53)
[2024-03-06] MEDS ORDERED: Prochlorperazine 25 MG Supp RECTAL PRN (20:05)
[2024-03-06] MEDS ORDERED: Promethazine 25 MG Supp RECTAL PRN (20:05)
[2024-03-06] MEDS ORDERED: Albuterol/Ipratropium 3.0-0.5 MG/3 ML Neb Soln NEB PRN (20:05)
[2024-03-06] MEDS ORDERED: Ondansetron 4 MG/2 ML SDV IVPUSH PRN (20:05)
[2024-03-06] MEDS ORDERED: Naloxone 2 MG/2 ML Syringe IVPUSH PRN (20:05)
[2024-03-06] MEDS: Remove Patch- LIDOCAINE PATCH TRDERM SCH (20:10)
[2024-03-06] MEDS: Amoxicillin/Clavulanate K 875-125 MG Tab PO SCH (20:20)
[2024-03-06] MEDS: Celecoxib 100 MG Cap PO SCH (20:20)
[2024-03-06] MEDS: Saccharomyces Boulardii (Probiotic) 250 MG Cap PO SCH (20:20)
[2024-03-06] MEDS: Metoprolol Tartrate 25 MG Tab PO SCH (20:20)
[2024-03-06] MEDS: Acetaminophen/HYDROcodone 325-5 MG Tab PO SCH (20:20)
[2024-03-06] MEDS: Gabapentin 300 MG Cap PO SCH (20:21)
[2024-03-06] MEDS: Zolpidem 5 MG Tab PO SCH (20:21)
[2024-03-06] MEDS: Apixaban 5 MG Tab PO SCH (20:21)
[2024-03-06] MEDS: Magnesium Oxide 400 MG Tab PO SCH (20:21)
[2024-03-06] MEDS: Budesonide 0.5 MG/2 ML Neb Susp INH SCH (20:21)
[2024-03-07] MEDS: HYDROmorphone 0.5 MG/0.5 ML Syringe IVPUSH ONE (01:10)
[2024-03-07] MEDS: HYDROmorphone 0.5 MG/0.5 ML Syringe IVPUSH PRN (01:14)
[2024-03-07] MEDS: Famotidine 20 MG Tab PO ONE (01:14)
[2024-03-07] MEDS: Levothyroxine 75 MCG Tab PO SCH (04:46)
[2024-03-07] MEDS: Metoprolol Tartrate 5 MG/5 ML SDV IVPUSH PRN (05:05)
[2024-03-07 06:33] LABS: BASOPHILS PERCENT AUTO 0.3 % (0.0-1.0); EOSINOPHILS PERCENT AUTO 0.9 % (1.0-3.0); HEMATOCRIT 29.7 % (37.0-47.0); HEMOGLOBIN 9.3 g/dL (12.0-16.0); LYMPHOCYTES PERCENT AUTO 9.4 % (20.5-50.1); MEAN CORPUSCULAR HEMOGLOBIN 28.9 pg (27.0-34.0); MEAN CORPUSCULAR HGB CONC 31.3 g/dL (33.0-35.0); MEAN CORPUSCULAR VOLUME 92.2 fL (80-100); MONOCYTES PERCENT AUTO 12.4 % (2-8); PLATELET COUNT,PLT 490 10^3/uL (150-450); RED BLOOD CELL COUNT 3.22 10^6/uL (4.2-5.4); WHITE BLOOD CELL COUNT,WBC 11.7 10^3/uL (5.0-10.0)
[2024-03-07 06:56] LABS: A/G RATIO 0.7; ALBUMIN 2.3 g/dL (3.4-5.0); ANION GAP 13.4 mEq/L (7-13); BILIRUBIN TOTAL 0.3 mg/dL (0.2-1.0); BUN/CREATININE RATIO 10.1 (No establ ref range); CALCIUM 8.8 mg/dL (8.5-10.1); CREATININE 0.79 mg/dL (0.55-1.02); EST CRCL DRUG DOSING (CG) 38.08 mL/min; MAGNESIUM 2.2 mg/dL (1.8-2.4); POTASSIUM,K 4.4 mmol/L (3.5-5.1); PROTEIN TOTAL,TP 5.6 g/dL (6.4-8.2)
[2024-03-07] MEDS: Lidocaine 5% 700 MG Patch TOP SCH (09:22)
[2024-03-07] MEDS: Famotidine 20 MG Tab PO SCH (09:29)
[2024-03-07] MEDS: Pantoprazole 40 MG Vial IVPUSH ONE (12:28)
[2024-03-07] MEDS: Dextrose 5%-0.9% NaCl 1,000 ML IV SCH (16:34)
[2024-03-07] MEDS: Loperamide 2 MG Cap PO PRN (16:46)
[2024-03-07] MEDS: Ferrous Sulfate 325 MG Tab PO SCH (21:58)
[2024-03-08 06:38] LABS: BASOPHILS PERCENT AUTO 0.3 % (0.0-1.0); EOSINOPHILS PERCENT AUTO 1.2 % (1.0-3.0); HEMATOCRIT 28.1 % (37.0-47.0); HEMOGLOBIN 8.8 g/dL (12.0-16.0); LYMPHOCYTES PERCENT AUTO 13.6 % (20.5-50.1); MEAN CORPUSCULAR HGB CONC 31.3 g/dL (33.0-35.0); MEAN CORPUSCULAR VOLUME 92.7 fL (80-100); MONOCYTES PERCENT AUTO 10.8 % (2-8); NEUTROPHILS PERCENT AUTO 74.1 % (42.2-75.2); PLATELET COUNT,PLT 472 10^3/uL (150-450); RED BLOOD CELL COUNT 3.03 10^6/uL (4.2-5.4); WHITE BLOOD CELL COUNT,WBC 10.1 10^3/uL (5.0-10.0)
[2024-03-08 06:45] LABS: ALBUMIN 2.3 g/dL (3.4-5.0); BILIRUBIN TOTAL 0.2 mg/dL (0.2-1.0); BUN/CREATININE RATIO 8.3 (No establ ref range); C-REACTIVE PROTEIN 4.01 ng/dL (<=0.50); CALCIUM 8.6 mg/dL (8.5-10.1); CREATININE 0.84 mg/dL (0.55-1.02); EST CRCL DRUG DOSING (CG) 35.81 mL/min; MAGNESIUM 2.1 mg/dL (1.8-2.4); PROTEIN TOTAL,TP 5.6 g/dL (6.4-8.2)
[2024-03-08 06:48] LABS: A/G RATIO 0.7
[2024-03-08 08:00] LABS: CHOLESTEROL HDL 36 mg/dL (40-59); CHOLESTEROL LDL CALCULATED 62 mg/dL (0-100); CHOLESTEROL TOTAL 116 mg/dL (0-199); TRIGLYCERIDES 92 mg/dL (0-149)
[2024-03-08] MEDS: Aspirin 81 MG Tab.Chew PO ONE (08:12)
[2024-03-08] MEDS: Pantoprazole 40 MG Vial IVPUSH ONE (08:21)
[2024-03-08] MEDS: Vancomycin 125 MG Cap PO ONE (11:07)
[2024-03-08] MEDS: Calcium Carbonate 500 MG Tab.Chew PO PRN (16:43)
[2024-03-08] MEDS: Vancomycin 125 MG Cap PO SCH (18:09)
[2024-03-09 06:20] LABS: HEMATOCRIT 29.4 % (37.0-47.0); HEMOGLOBIN 9.3 g/dL (12.0-16.0); MEAN CORPUSCULAR HEMOGLOBIN 29.4 pg (27.0-34.0); MEAN CORPUSCULAR HGB CONC 31.6 g/dL (33.0-35.0); PLATELET COUNT,PLT 473 10^3/uL (150-450); RED BLOOD CELL COUNT 3.16 10^6/uL (4.2-5.4); WHITE BLOOD CELL COUNT,WBC 10.6 10^3/uL (5.0-10.0)
[2024-03-09 06:22] LABS: BASOPHILS PERCENT AUTO 0.3 % (0.0-1.0); LYMPHOCYTES PERCENT AUTO 15.3 % (20.5-50.1); MONOCYTES PERCENT AUTO 9.9 % (2-8); NEUTROPHILS PERCENT AUTO 73.5 % (42.2-75.2)
[2024-03-09 06:36] LABS: ALBUMIN 2.4 g/dL (3.4-5.0); ANION GAP 12.1 mEq/L (7-13); BILIRUBIN TOTAL 0.2 mg/dL (0.2-1.0); BUN/CREATININE RATIO 5.7 (No establ ref range); C-REACTIVE PROTEIN 2.78 ng/dL (<=0.50); CREATININE 0.87 mg/dL (0.55-1.02); EST CRCL DRUG DOSING (CG) 34.57 mL/min; MAGNESIUM 2.1 mg/dL (1.8-2.4); POTASSIUM,K 4.1 mmol/L (3.5-5.1); PROTEIN TOTAL,TP 5.8 g/dL (6.4-8.2)
[2024-03-09 06:40] LABS: A/G RATIO 0.71
[2024-03-09 06:56] LABS: BAND PERCENT MAN 2 %; LYMPHOCYTES PERCENT MAN 13 % (20-50); MONOCYTES PERCENT MAN 5 % (2-8); SEG NEUTROPHILS PERCENT MAN 80 % (42-75)
[2024-03-09] MEDS: Aspirin 81 MG Tab.Chew PO SCH (08:50)
[2024-03-09] MEDS: Furosemide 40 MG Tab PO SCH (08:51)
== END 2024-03-09 11:13 | disposition swing bed (61) | DRG 372 ==
LOC: DL.ED 16:39 → DL.MS 18:28
PROVIDERS: ADMIT Internal Medicine; ATTEND Internal Medicine
DX: I48.91 Unspecified atrial fibrillation (principal); A04.72 Enterocolitis due to Clostridium difficile, not specified as recurrent; K57.32 Diverticulitis of large intestine without perforation or abscess without bleeding; I48.0 Paroxysmal atrial fibrillation; I10 Essential (primary) hypertension; E78.5 Hyperlipidemia, unspecified; Z66 Do not resuscitate; Z79.2 Long term (current) use of antibiotics; Z79.82 Long term (current) use of aspirin; Z79.891 Long term (current) use of opiate analgesic; Z68.28 Body mass index [BMI] 28.0-28.9, adult; H54.7 Unspecified visual loss; H91.90 Unspecified hearing loss, unspecified ear; E03.9 Hypothyroidism, unspecified; M19.90 Unspecified osteoarthritis, unspecified site; M81.0 Age-related osteoporosis without current pathological fracture; G89.29 Other chronic pain; E66.9 Obesity, unspecified; E87.6 Hypokalemia; D72.829 Elevated white blood cell count, unspecified; R73.9 Hyperglycemia, unspecified; E83.42 Hypomagnesemia; F41.9 Anxiety disorder, unspecified; G47.00 Insomnia, unspecified; Z86.16 Personal history of COVID-19; Z79.890 Hormone replacement therapy; Z79.899 Other long term (current) drug therapy; Z90.710 Acquired absence of both cervix and uterus
CPT/HCPCS: 36415; 80053; 81001; 83036; 83605; 83735; 84439; 84443; 85025; 85610; 86140; 87040 ×2; 87046 ×2; 87086; 93005; 93010; 96361; 96365; 96375; 99285 ×2; A9270; J3475; J3490; J7030; 71045; 80061; 84484; 87045; 87493; 87899; 93306; 99223; 99232; 99233; 99238; J1171; J2470; J7042

== ENCOUNTER 2024-03-09 08:57 | Inpatient (IN) | payer MEDICARE, BC ==
[2024-03-09] MEDS ORDERED: Acetaminophen 325 MG Tab PO PRN (10:04)
[2024-03-09] MEDS ORDERED: Prochlorperazine 25 MG Supp RECTAL PRN (10:04)
[2024-03-09] MEDS ORDERED: Albuterol/Ipratropium 3.0-0.5 MG/3 ML Neb Soln NEB PRN (10:04)
[2024-03-09] MEDS ORDERED: Promethazine 25 MG Supp RECTAL PRN (10:04)
[2024-03-09] MEDS ORDERED: Sodium Chloride 0.9% 10 ML Syringe FLUSH PRN ×2 (10:04)
[2024-03-09] MEDS: Vancomycin 125 MG Cap PO SCH (12:03)
[2024-03-09] MEDS: Gabapentin 300 MG Cap PO SCH (14:27)
[2024-03-09] MEDS: Acetaminophen/HYDROcodone 325-5 MG Tab PO SCH (14:27)
[2024-03-09] MEDS: Budesonide 0.5 MG/2 ML Neb Susp INH SCH (17:56)
[2024-03-09] MEDS: Zolpidem 5 MG Tab PO SCH (21:40)
[2024-03-09] MEDS: Celecoxib 100 MG Cap PO SCH (21:40)
[2024-03-09] MEDS: Saccharomyces Boulardii (Probiotic) 250 MG Cap PO SCH (21:41)
[2024-03-09] MEDS: Apixaban 5 MG Tab PO SCH (21:41)
[2024-03-09] MEDS: Magnesium Oxide 400 MG Tab PO SCH (21:42)
[2024-03-09] MEDS: Metoprolol Tartrate 25 MG Tab PO SCH (21:45)
[2024-03-09] MEDS: Ferrous Sulfate 325 MG Tab PO SCH (21:45)
[2024-03-09] MEDS: Sodium Chloride 0.9% 10 ML Syringe FLUSH SCH (21:54)
[2024-03-10] MEDS: Levothyroxine 75 MCG Tab PO SCH (06:01)
[2024-03-10] MEDS ORDERED: Furosemide 40 MG Tab PO SCH (09:00)
[2024-03-10] MEDS: Loperamide 2 MG Cap PO PRN (09:09)
[2024-03-10] MEDS: Aspirin 81 MG Tab.Chew PO SCH (09:09)
[2024-03-10] MEDS: Famotidine 20 MG Tab PO SCH (09:10)
[2024-03-10] MEDS: Lidocaine 5% 700 MG Patch TOP SCH (09:16)
[2024-03-11] MEDS: Calcium Carbonate 500 MG Tab.Chew PO PRN (09:31)
[2024-03-11] MEDS: Furosemide 20 MG Tab PO ONE (09:41)
[2024-03-12] MEDS: Furosemide 40 MG Tab PO SCH (09:48)
[2024-03-13 06:47] LABS: ALBUMIN 2.5 g/dL (3.4-5.0); ANION GAP 11.4 mEq/L (7-13); BILIRUBIN TOTAL 0.1 mg/dL (0.2-1.0); BUN/CREATININE RATIO 6.3 (No establ ref range); C-REACTIVE PROTEIN 1.06 ng/dL (<=0.50); CREATININE 0.95 mg/dL (0.55-1.02); EST CRCL DRUG DOSING (CG) 31.66 mL/min; MAGNESIUM 2.2 mg/dL (1.8-2.4); POTASSIUM,K 4.4 mmol/L (3.5-5.1); PROTEIN TOTAL,TP 5.9 g/dL (6.4-8.2)
[2024-03-13 06:51] LABS: A/G RATIO 0.74
[2024-03-14 06:04] LABS: BASOPHILS PERCENT AUTO 0.6 % (0.0-1.0); EOSINOPHILS PERCENT AUTO 2.4 % (1.0-3.0); HEMATOCRIT 30.2 % (37.0-47.0); HEMOGLOBIN 9.1 g/dL (12.0-16.0); MEAN CORPUSCULAR HGB CONC 30.1 g/dL (33.0-35.0); MEAN CORPUSCULAR VOLUME 96.2 fL (80-100); MONOCYTES PERCENT AUTO 11.5 % (2-8); NEUTROPHILS PERCENT AUTO 53.5 % (42.2-75.2); PLATELET COUNT,PLT 528 10^3/uL (150-450); RED BLOOD CELL COUNT 3.14 10^6/uL (4.2-5.4); WHITE BLOOD CELL COUNT,WBC 6.2 10^3/uL (5.0-10.0)
== END 2024-03-14 10:41 | disposition home or self-care (01) | DRG 948 ==
LOC: DL.MS 11:20 → UNDOADMIN 11:20
PROVIDERS: ADMIT Internal Medicine; ATTEND Internal Medicine
DX: R53.81 Other malaise (principal); A04.72 Enterocolitis due to Clostridium difficile, not specified as recurrent; K57.32 Diverticulitis of large intestine without perforation or abscess without bleeding; I48.0 Paroxysmal atrial fibrillation; I10 Essential (primary) hypertension; E78.5 Hyperlipidemia, unspecified; E03.9 Hypothyroidism, unspecified; M81.0 Age-related osteoporosis without current pathological fracture; G89.3 Neoplasm related pain (acute) (chronic); G47.00 Insomnia, unspecified; Z68.27 Body mass index [BMI] 27.0-27.9, adult; E66.9 Obesity, unspecified; D72.829 Elevated white blood cell count, unspecified; F41.9 Anxiety disorder, unspecified; M54.9 Dorsalgia, unspecified; M54.2 Cervicalgia; M19.90 Unspecified osteoarthritis, unspecified site; R73.9 Hyperglycemia, unspecified; Z79.82 Long term (current) use of aspirin; Z86.16 Personal history of COVID-19; Z79.01 Long term (current) use of anticoagulants; Z79.890 Hormone replacement therapy; Z79.899 Other long term (current) drug therapy; Z90.710 Acquired absence of both cervix and uterus; Z98.890 Other specified postprocedural states
CPT/HCPCS: 36415; 80053; 83735; 85025; 86140; 94640; 97110-GO; 97110-GP; 97116-GP; 97162-GP; 97165-GO; 97530-GO; 97530-GP; 99306; 99315; A9270-GY; J3490

== ENCOUNTER 2024-03-25 09:42 | Emergency (ER) | payer MEDICARE, BC ==
[2024-03-25] MEDS: Iopamidol 612 MG/ML 100 ML Bottle IVPUSH ONE (10:17)
[2024-03-25 10:40] LABS: EOSINOPHILS PERCENT AUTO 0.2 % (1.0-3.0); HEMOGLOBIN 10.4 g/dL (12.0-16.0); LYMPHOCYTES PERCENT AUTO 5.4 % (20.5-50.1); MEAN CORPUSCULAR HEMOGLOBIN 28.6 pg (27.0-34.0); MEAN CORPUSCULAR HGB CONC 30.6 g/dL (33.0-35.0); MEAN CORPUSCULAR VOLUME 93.4 fL (80-100); MONOCYTES PERCENT AUTO 13.7 % (2-8); NEUTROPHILS PERCENT AUTO 80.7 % (42.2-75.2); PLATELET COUNT,PLT 392 10^3/uL (150-450); RED BLOOD CELL COUNT 3.64 10^6/uL (4.2-5.4); WHITE BLOOD CELL COUNT,WBC 21.8 10^3/uL (5.0-10.0)
[2024-03-25 11:00] LABS: A/G RATIO 0.76; ALBUMIN 2.9 g/dL (3.4-5.0); ANION GAP 13.3 mEq/L (7-13); BILIRUBIN TOTAL 0.6 mg/dL (0.2-1.0); BUN/CREATININE RATIO 12.9 (No establ ref range); CALCIUM 9.1 mg/dL (8.5-10.1); CREATININE 1.16 mg/dL (0.55-1.02); EST CRCL DRUG DOSING (CG) 25.93 mL/min; MAGNESIUM 2.3 mg/dL (1.8-2.4); POTASSIUM,K 3.3 mmol/L (3.5-5.1); PROTEIN TOTAL,TP 6.7 g/dL (6.4-8.2)
[2024-03-25 11:15] LABS: LACTIC ACID 2.2 mmol/L (0.4-2.0)
[2024-03-25] MEDS: Potassium Chloride 10 MEQ Tab.ER PO ONE (11:30)
[2024-03-25] MEDS ORDERED: Sodium Chloride 0.9% 1,000 ML IV SCH (11:45)
[2024-03-25] MEDS: metroNIDAZOLE/Normal Saline 500 MG in Premix Bag 1 BAG IV ONE (13:38)
[2024-03-25] MEDS: Ciprofloxacin in D5W 400 MG in Premix Bag 1 BAG IV ONE (13:38)
[2024-03-25] MEDS: metroNIDAZOLE/Normal Saline 100 ML ONE (13:39)
[2024-03-25 13:46] LABS: APPEARANCE,URINE SLIGHTLY CLOUDY (CLEAR); BILIRUBIN,URINE NEGATIVE (NEGATIVE); COLOR,URINE YELLOW (YELLOW); GLUCOSE,URINE NEGATIVE (NEGATIVE); KETONES,URINE NEGATIVE (NEGATIVE); LEUKOCYTE ESTERASE,URINE TRACE (NEGATIVE); NITRITE,URINE POSITIVE (NEGATIVE); OCCULT BLOOD,URINE TRACE-INTACT (NEGATIVE); PH,URINE 7.5 (5.0-9.0); PROTEIN,URINE 30 (NEGATIVE); UROBILINOGEN,URINE 0.2 mg/dL (0.2-1.0)
[2024-03-25 14:00] LABS: BACTERIA,URINE MODERATE /HPF (0-FEW/HPF); EPITHELIAL CELLS,URINE FEW /HPF (NOT SEEN); MUCUS,URINE RARE /LPF (NOT SEEN); RBC,URINE 0-5 /HPF (0-5)
== END 2024-03-25 14:14 ==
LOC: DL.ED 09:42
DX: A41.9 Sepsis, unspecified organism (principal); N17.9 Acute kidney failure, unspecified; K57.92 Diverticulitis of intestine, part unspecified, without perforation or abscess without bleeding; E87.6 Hypokalemia; E03.9 Hypothyroidism, unspecified; E66.9 Obesity, unspecified; Z68.26 Body mass index [BMI] 26.0-26.9, adult; Z90.710 Acquired absence of both cervix and uterus; Z86.16 Personal history of COVID-19; Z79.899 Other long term (current) drug therapy
CPT/HCPCS: 36415; 74177; 80053; 81001; 83605; 83690; 83735; 85025; 87040; 87045; 87046; 87077; 87086; 87088; 87186; 87324; 87493; 87899; 96365; 96368; 99285; 99285-25; A9270-GY; J0744; J1836; Q9967

== ENCOUNTER 2024-04-16 10:11 | Emergency (ER) | payer MEDICARE, BC ==
[2024-04-16] MEDS: Sodium Chloride 0.9% 500 ML IV SCH (09:18)
[2024-04-16 09:23] LABS: BASOPHILS PERCENT AUTO 0.1 % (0.0-1.0); EOSINOPHILS PERCENT AUTO 0.4 % (1.0-3.0); HEMATOCRIT 31.9 % (37.0-47.0); LYMPHOCYTES PERCENT AUTO 8.7 % (20.5-50.1); MEAN CORPUSCULAR HEMOGLOBIN 28.9 pg (27.0-34.0); MEAN CORPUSCULAR HGB CONC 31.3 g/dL (33.0-35.0); MEAN CORPUSCULAR VOLUME 92.2 fL (80-100); MONOCYTES PERCENT AUTO 12.3 % (2-8); NEUTROPHILS PERCENT AUTO 78.5 % (42.2-75.2); PLATELET COUNT,PLT 331 10^3/uL (150-450); RED BLOOD CELL COUNT 3.46 10^6/uL (4.2-5.4); WHITE BLOOD CELL COUNT,WBC 9.9 10^3/uL (5.0-10.0)
[2024-04-16 09:35] LABS: ANION GAP 16.6 mEq/L (7-13); CALCIUM 9.4 mg/dL (8.5-10.1); CREATININE 0.9 mg/dL (0.55-1.02); EST CRCL DRUG DOSING (CG) 33.42 mL/min; POTASSIUM,K 3.6 mmol/L (3.5-5.1)
[~2024-04-16 10:11] MED LIST: Ertapenem 1 GM in Sodium Chloride 0.9% 100 ML IV SCH; Sodium Chloride 0.9% 10 ML Syringe IV PRN
[2024-04-16 10:33] LABS: APPEARANCE,URINE CLEAR (CLEAR); BILIRUBIN,URINE NEGATIVE (NEGATIVE); COLOR,URINE YELLOW (YELLOW); GLUCOSE,URINE NEGATIVE (NEGATIVE); KETONES,URINE 15 (NEGATIVE); LEUKOCYTE ESTERASE,URINE NEGATIVE (NEGATIVE); NITRITE,URINE NEGATIVE (NEGATIVE); OCCULT BLOOD,URINE NEGATIVE (NEGATIVE); PH,URINE 5.5 (5.0-9.0); PROTEIN,URINE NEGATIVE (NEGATIVE); UROBILINOGEN,URINE 0.2 mg/dL (0.2-1.0)
[2024-04-16 10:43] LABS: BACTERIA,URINE NOT SEEN /HPF (0-FEW/HPF); EPITHELIAL CELLS,URINE OCCASIONAL /HPF (NOT SEEN); MUCUS,URINE RARE /LPF (NOT SEEN); RBC,URINE NOT SEEN /HPF (0-5); WBC,URINE NOT SEEN /HPF (0-5/HPF)
== END 2024-04-16 11:45 | disposition home or self-care (01) ==
LOC: DL.ED 10:11
DX: A09 Infectious gastroenteritis and colitis, unspecified (principal); R53.1 Weakness; E66.9 Obesity, unspecified; Z68.25 Body mass index [BMI] 25.0-25.9, adult; Z86.16 Personal history of COVID-19; Z79.899 Other long term (current) drug therapy; Z79.891 Long term (current) use of opiate analgesic; W19.XXXA Unspecified fall, initial encounter
CPT/HCPCS: 36415; 70450; 80048; 81001; 85025; 96360; 99285; J7040

== ENCOUNTER 2024-04-17 10:03 | Inpatient (IN) | payer MEDICARE, BC ==
[2024-04-17] MEDS: Iopamidol 612 MG/ML 100 ML Bottle IVPUSH ONE (10:32)
[2024-04-17 10:33] LABS: BASOPHILS PERCENT AUTO 0.3 % (0.0-1.0); EOSINOPHILS PERCENT AUTO 2.2 % (1.0-3.0); HEMATOCRIT 29.6 % (37.0-47.0); HEMOGLOBIN 9.3 g/dL (12.0-16.0); LYMPHOCYTES PERCENT AUTO 14.3 % (20.5-50.1); MEAN CORPUSCULAR HEMOGLOBIN 29.4 pg (27.0-34.0); MEAN CORPUSCULAR HGB CONC 31.4 g/dL (33.0-35.0); MEAN CORPUSCULAR VOLUME 93.7 fL (80-100); MONOCYTES PERCENT AUTO 12.2 % (2-8); PLATELET COUNT,PLT 298 10^3/uL (150-450); RED BLOOD CELL COUNT 3.16 10^6/uL (4.2-5.4); WHITE BLOOD CELL COUNT,WBC 6.8 10^3/uL (5.0-10.0)
[2024-04-17 10:44] LABS: ALANINE AMINOTRANSFERASE,ALT 28 U/L (14-59); ALBUMIN 2.8 g/dL (3.4-5.0); ALKALINE PHOSPHATASE 81 U/L (46-116); ANION GAP 14.2 mEq/L (7-13); ASPARTATE AMNIOTRANSFERASE,AST 26 U/L (15-37); BILIRUBIN TOTAL 0.4 mg/dL (0.2-1.0); BLOOD UREA NITROGEN,BUN 9 mg/dL (7-18); BUN/CREATININE RATIO 10.7 (No establ ref range); CALCIUM 8.7 mg/dL (8.5-10.1); CARBON DIOXIDE,CO2 25 mmol/L (21-32); CHLORIDE,CL 107 mmol/L (98-107); CREATININE 0.84 mg/dL (0.55-1.02); EST CRCL DRUG DOSING (CG) 39.43 mL/min; GLUCOSE RANDOM 98 mg/dL (70-99); POTASSIUM,K 4.2 mmol/L (3.5-5.1); PROTEIN TOTAL,TP 5.9 g/dL (6.4-8.2); SODIUM,NA 142 mmol/L (136-145)
[2024-04-17 10:45] LABS: ESTIMATED GFR 68 mL/min (>=60); ETHANOL BLOOD MEDICAL < 3 mg/dL (0)
[2024-04-17 10:47] LABS: INR 1.1 (0.9-1.2); PROTHROMBIN TIME 11.1 SEC (9.0-12.0)
[2024-04-17] MEDS: Sodium Chloride 0.9% 1,000 ML IV ONE (11:07)
[2024-04-17 11:35] LABS: APPEARANCE,URINE CLEAR (CLEAR); BILIRUBIN,URINE NEGATIVE (NEGATIVE); COLOR,URINE LIGHT YELLOW (YELLOW); GLUCOSE,URINE NEGATIVE (NEGATIVE); KETONES,URINE NEGATIVE (NEGATIVE); LEUKOCYTE ESTERASE,URINE NEGATIVE (NEGATIVE); NITRITE,URINE NEGATIVE (NEGATIVE); OCCULT BLOOD,URINE NEGATIVE (NEGATIVE); PH,URINE 5.5 (5.0-9.0); PROTEIN,URINE NEGATIVE (NEGATIVE); UROBILINOGEN,URINE 0.2 mg/dL (0.2-1.0)
[2024-04-17] MEDS ORDERED: Albuterol/Ipratropium 3.0-0.5 MG/3 ML Neb Soln NEB PRN (15:03)
[2024-04-17] MEDS ORDERED: Naloxone 2 MG/2 ML Syringe IVPUSH PRN (15:03)
[2024-04-17] MEDS ORDERED: Ondansetron 4 MG/2 ML SDV IVPUSH PRN (15:03)
[2024-04-17] MEDS ORDERED: Metoclopramide 10 MG/2 ML SDV IV PRN (15:03)
[2024-04-17] MEDS ORDERED: Acetaminophen/HYDROcodone 325-10 MG Tab PO PRN (15:03)
[2024-04-17] MEDS ORDERED: HYDROmorphone 0.5 MG/0.5 ML Syringe IVPUSH PRN (15:03)
[2024-04-17] MEDS ORDERED: ALENDRONATE SODIUM 35 MG PO SCH (15:15)
[2024-04-17] MEDS: Dextrose 5%-0.9% NaCl 1,000 ML IV SCH (17:57)
[2024-04-17] MEDS: Gabapentin 300 MG Cap PO SCH (21:52)
[2024-04-17] MEDS: Zolpidem 5 MG Tab PO PRN (21:53)
[2024-04-17] MEDS: Apixaban 5 MG Tab PO SCH (21:53)
[2024-04-17] MEDS: Magnesium Oxide 400 MG Tab PO SCH (21:54)
[2024-04-17] MEDS: Celecoxib 100 MG Cap PO SCH (21:54)
[2024-04-18] MEDS: Levothyroxine 75 MCG Tab PO SCH (06:09)
[2024-04-18 06:50] LABS: ALBUMIN 2.4 g/dL (3.4-5.0); ANION GAP 10.8 mEq/L (7-13); BILIRUBIN TOTAL 0.3 mg/dL (0.2-1.0); BUN/CREATININE RATIO 5.7 (No establ ref range); C-REACTIVE PROTEIN 1.85 ng/dL (<=0.50); CALCIUM 8.5 mg/dL (8.5-10.1); CREATININE 0.7 mg/dL (0.55-1.02); EST CRCL DRUG DOSING (CG) 42.97 mL/min; POTASSIUM,K 3.8 mmol/L (3.5-5.1); PROTEIN TOTAL,TP 5.5 g/dL (6.4-8.2)
[2024-04-18 06:54] LABS: A/G RATIO 0.77
[2024-04-18] MEDS: Famotidine 20 MG Tab PO SCH (08:16)
[2024-04-18] MEDS: Omeprazole 20 MG Cap.CR PO SCH (08:16)
[2024-04-18] MEDS: Lidocaine 5% 700 MG Patch TOP SCH (08:17)
[2024-04-18] MEDS: Ertapenem 1 GM Vial IV SCH (08:18)
[2024-04-18 08:55] LABS: BASOPHILS PERCENT AUTO 0.2 % (0.0-1.0); EOSINOPHILS PERCENT AUTO 3.3 % (1.0-3.0); HEMATOCRIT 28.5 % (37.0-47.0); HEMOGLOBIN 9.1 g/dL (12.0-16.0); LYMPHOCYTES PERCENT AUTO 15.8 % (20.5-50.1); MEAN CORPUSCULAR HEMOGLOBIN 29.4 pg (27.0-34.0); MEAN CORPUSCULAR HGB CONC 31.9 g/dL (33.0-35.0); MEAN CORPUSCULAR VOLUME 92.2 fL (80-100); MONOCYTES PERCENT AUTO 13.5 % (2-8); NEUTROPHILS PERCENT AUTO 67.2 % (42.2-75.2); PLATELET COUNT,PLT 278 10^3/uL (150-450); RED BLOOD CELL COUNT 3.09 10^6/uL (4.2-5.4); WHITE BLOOD CELL COUNT,WBC 4.8 10^3/uL (5.0-10.0)
[2024-04-18] MEDS ORDERED: Sodium Chloride 0.9% 10 ML Syringe FLUSH PRN (17:07)
[2024-04-18] MEDS: Melatonin 3 MG Tab PO PRN (20:26)
[2024-04-18] MEDS: Ferrous Sulfate 325 MG Tab PO SCH (20:26)
[2024-04-18] MEDS: Acetaminophen 325 MG Tab PO PRN (20:26)
[2024-04-19] MEDS: FIDAXOMICIN 200 MG PO SCH (04:10)
[2024-04-19 06:57] LABS: BASOPHILS PERCENT AUTO 0.2 % (0.0-1.0); EOSINOPHILS PERCENT AUTO 4.2 % (1.0-3.0); HEMOGLOBIN 9.3 g/dL (12.0-16.0); LYMPHOCYTES PERCENT AUTO 26.8 % (20.5-50.1); MEAN CORPUSCULAR HEMOGLOBIN 29.2 pg (27.0-34.0); MONOCYTES PERCENT AUTO 14.5 % (2-8); NEUTROPHILS PERCENT AUTO 54.3 % (42.2-75.2); PLATELET COUNT,PLT 269 10^3/uL (150-450); RED BLOOD CELL COUNT 3.19 10^6/uL (4.2-5.4); WHITE BLOOD CELL COUNT,WBC 4.1 10^3/uL (5.0-10.0)
[2024-04-19 07:29] LABS: ALBUMIN 2.5 g/dL (3.4-5.0); ANION GAP 12.6 mEq/L (7-13); BILIRUBIN TOTAL 0.4 mg/dL (0.2-1.0); BUN/CREATININE RATIO 4.5 (No establ ref range); C-REACTIVE PROTEIN 1.09 ng/dL (<=0.50); CALCIUM 8.7 mg/dL (8.5-10.1); CREATININE 0.66 mg/dL (0.55-1.02); EST CRCL DRUG DOSING (CG) 45.58 mL/min; MAGNESIUM 2.4 mg/dL (1.8-2.4); POTASSIUM,K 3.6 mmol/L (3.5-5.1); PROTEIN TOTAL,TP 5.6 g/dL (6.4-8.2)
[2024-04-19 07:40] LABS: A/G RATIO 0.81
[2024-04-19] MEDS: Alteplase 2 MG Vial IV ONE (11:56)
[2024-04-19] MEDS: Midodrine 2.5 MG Tab PO ONE (11:56)
[2024-04-19] MEDS: Water For Injection, Sterile 10 ML ONE (12:27)
[2024-04-19] MEDS: Midodrine 5 MG Tab PO SCH (20:53)
[2024-04-19] MEDS: Sodium Chloride 0.9% 10 ML Syringe FLUSH SCH (20:57)
[2024-04-20 06:35] LABS: HEMATOCRIT 31.1 % (37.0-47.0); HEMOGLOBIN 9.7 g/dL (12.0-16.0); MEAN CORPUSCULAR HEMOGLOBIN 29.5 pg (27.0-34.0); MEAN CORPUSCULAR HGB CONC 31.2 g/dL (33.0-35.0); MEAN CORPUSCULAR VOLUME 94.5 fL (80-100); PLATELET COUNT,PLT 294 10^3/uL (150-450); RED BLOOD CELL COUNT 3.29 10^6/uL (4.2-5.4); WHITE BLOOD CELL COUNT,WBC 5.1 10^3/uL (5.0-10.0)
[2024-04-20 06:44] LABS: BASOPHILS PERCENT AUTO 0.4 % (0.0-1.0); EOSINOPHILS PERCENT AUTO 3.2 % (1.0-3.0); LYMPHOCYTES PERCENT AUTO 30.1 % (20.5-50.1); MONOCYTES PERCENT AUTO 16.4 % (2-8); NEUTROPHILS PERCENT AUTO 49.9 % (42.2-75.2)
[2024-04-20 06:59] LABS: ALBUMIN 2.6 g/dL (3.4-5.0); BILIRUBIN TOTAL 0.4 mg/dL (0.2-1.0); C-REACTIVE PROTEIN 0.54 ng/dL (<=0.50); CALCIUM 8.8 mg/dL (8.5-10.1); CREATININE 0.84 mg/dL (0.55-1.02); EST CRCL DRUG DOSING (CG) 35.81 mL/min; MAGNESIUM 2.2 mg/dL (1.8-2.4); PROTEIN TOTAL,TP 5.8 g/dL (6.4-8.2)
[2024-04-20 07:07] LABS: A/G RATIO 0.81
[2024-04-20 07:10] LABS: EOSINOPHILS PERCENT MAN 2 % (1-3); LYMPHOCYTES PERCENT MAN 28 % (20-50); MONOCYTES PERCENT MAN 12 % (2-8); SEG NEUTROPHILS PERCENT MAN 58 % (42-75)
== END 2024-04-20 13:35 | disposition swing bed (61) | DRG 71 ==
LOC: DL.ED 10:03 → DL.MS 12:13 → DL.ED 12:19
PROVIDERS: ADMIT Internal Medicine; ATTEND Internal Medicine
DX: R41.82 Altered mental status, unspecified (principal); G93.41 Metabolic encephalopathy; F11.20 Opioid dependence, uncomplicated; E66.9 Obesity, unspecified; Z79.01 Long term (current) use of anticoagulants; K57.20 Diverticulitis of large intestine with perforation and abscess without bleeding; W19.XXXA Unspecified fall, initial encounter; I10 Essential (primary) hypertension; E78.5 Hyperlipidemia, unspecified; M19.90 Unspecified osteoarthritis, unspecified site; E03.9 Hypothyroidism, unspecified; G89.4 Chronic pain syndrome; G47.00 Insomnia, unspecified; H26.9 Unspecified cataract; M54.2 Cervicalgia; Z66 Do not resuscitate; E86.0 Dehydration; R62.7 Adult failure to thrive; H70.91 Unspecified mastoiditis, right ear; W18.30XA Fall on same level, unspecified, initial encounter; Y93.89 Activity, other specified; Y92.009 Unspecified place in unspecified non-institutional (private) residence as the place of occurrence of the external cause; Z79.51 Long term (current) use of inhaled steroids; Z79.02 Long term (current) use of antithrombotics/antiplatelets; Z79.899 Other long term (current) drug therapy; Z98.49 Cataract extraction status, unspecified eye; Z90.710 Acquired absence of both cervix and uterus; Z98.890 Other specified postprocedural states; Z68.26 Body mass index [BMI] 26.0-26.9, adult
CPT/HCPCS: 36415; 70450; 70551; 71260; 72125; 74177; 80053; 80307; 81003; 82140; 82947; 83605; 83735; 84145; 84484; 85025; 85610; 86140; 93005; 93010; 97110-GO; 97112-GP; 97161-GP; 97165-GO; 97530-GO; 99223; 99233; 99238; 99285; A9270-GY; J1335; J2997; J7030; J7042; Q9967

== ENCOUNTER 2024-04-20 09:19 | Inpatient (IN) | payer MEDICARE, BC ==
[2024-04-20] MEDS ORDERED: Melatonin 3 MG Tab PO PRN (10:25)
[2024-04-20] MEDS ORDERED: Albuterol/Ipratropium 3.0-0.5 MG/3 ML Neb Soln NEB PRN (10:25)
[2024-04-20] MEDS ORDERED: Naloxone 2 MG/2 ML Syringe IVPUSH PRN (10:25)
[2024-04-20] MEDS ORDERED: Metoclopramide 10 MG/2 ML SDV IV PRN (10:25)
[2024-04-20] MEDS ORDERED: Sodium Chloride 0.9% 10 ML Syringe FLUSH PRN (10:25)
[2024-04-20] MEDS ORDERED: Acetaminophen/HYDROcodone 325-10 MG Tab PO PRN (10:25)
[2024-04-20] MEDS ORDERED: Acetaminophen 325 MG Tab PO PRN (10:25)
[2024-04-20] MEDS ORDERED: Ondansetron 4 MG/2 ML SDV IVPUSH PRN (10:25)
[2024-04-20] MEDS: Magnesium Oxide 400 MG Tab PO SCH (14:57)
[2024-04-20] MEDS: Gabapentin 300 MG Cap PO SCH (14:57)
[2024-04-20] MEDS: Ferrous Sulfate 325 MG Tab PO SCH (20:17)
[2024-04-20] MEDS: Midodrine 5 MG Tab PO SCH (20:17)
[2024-04-20] MEDS: Apixaban 5 MG Tab PO SCH (20:17)
[2024-04-20] MEDS: Celecoxib 100 MG Cap PO SCH (20:17)
[2024-04-20] MEDS: Sodium Chloride 0.9% 10 ML Syringe FLUSH SCH (20:20)
[2024-04-20] MEDS: Zolpidem 5 MG Tab PO PRN (22:30)
[2024-04-21] MEDS: Levothyroxine 75 MCG Tab PO SCH (05:01)
[2024-04-21] MEDS: Lidocaine 5% 700 MG Patch TOP SCH (08:26)
[2024-04-21] MEDS: Omeprazole 20 MG Cap.CR PO SCH (08:28)
[2024-04-21] MEDS: Famotidine 20 MG Tab PO SCH (08:28)
[2024-04-21] MEDS: Ertapenem 1 GM Vial IV SCH (08:28)
[2024-04-21] MEDS: VANCOmycin 125 MG Cap PO ONE (17:24)
[2024-04-21] MEDS: metroNIDAZOLE 250 MG Tab PO SCH (20:45)
[2024-04-21] MEDS: Cefdinir 125 MG/5 ML Susp 100 ML Bottle PO SCH (20:47)
[2024-04-22] MEDS: VANCOmycin 125 MG Cap PO SCH (08:36)
== END 2024-04-24 13:15 | disposition hospice, home (50) | DRG 948 ==
LOC: DL.MS 13:38
PROVIDERS: ADMIT Internal Medicine; ATTEND Internal Medicine
DX: R53.1 Weakness (principal); A04.72 Enterocolitis due to Clostridium difficile, not specified as recurrent; K57.20 Diverticulitis of large intestine with perforation and abscess without bleeding; R41.82 Altered mental status, unspecified; R62.7 Adult failure to thrive; Z66 Do not resuscitate; E03.9 Hypothyroidism, unspecified; I10 Essential (primary) hypertension; E78.5 Hyperlipidemia, unspecified; M19.90 Unspecified osteoarthritis, unspecified site; M81.0 Age-related osteoporosis without current pathological fracture; G47.00 Insomnia, unspecified; R29.6 Repeated falls; H54.7 Unspecified visual loss; M54.2 Cervicalgia; G89.29 Other chronic pain; E66.9 Obesity, unspecified; Z79.899 Other long term (current) drug therapy; Z79.01 Long term (current) use of anticoagulants; Z79.51 Long term (current) use of inhaled steroids; Z87.19 Personal history of other diseases of the digestive system; Z68.26 Body mass index [BMI] 26.0-26.9, adult; Z86.16 Personal history of COVID-19; Z98.49 Cataract extraction status, unspecified eye; Z90.710 Acquired absence of both cervix and uterus; Z98.890 Other specified postprocedural states
CPT/HCPCS: 99306; 99315; A9270-GY; J1335

== ENCOUNTER 2024-07-01 16:34 | Emergency (ER) | payer MEDICARE, BC ==
[2024-07-01] MEDS ORDERED: Sodium Chloride 0.9% 10 ML Syringe FLUSH PRN (16:57)
[2024-07-01] MEDS: Ketorolac 30 MG/ML SDV IVPUSH ONE (16:59)
[2024-07-01] MEDS: Lactated Ringers 1,000 ML IV ONE (16:59)
[2024-07-01] MEDS: Ketorolac 30 MG/ML SDV ONE (17:03)
[2024-07-01 17:04] LABS: HEMOGLOBIN 14.2 g/dL (12.0-16.0); MEAN CORPUSCULAR HEMOGLOBIN 28.9 pg (27.0-34.0); MEAN CORPUSCULAR HGB CONC 32.3 g/dL (33.0-35.0); MEAN CORPUSCULAR VOLUME 89.6 fL (80-100); PLATELET COUNT,PLT 364 10^3/uL (150-450); RED BLOOD CELL COUNT 4.91 10^6/uL (4.2-5.4); WHITE BLOOD CELL COUNT,WBC 10.2 10^3/uL (5.0-10.0)
[2024-07-01 17:10] LABS: BASOPHILS PERCENT AUTO 0.2 % (0.0-1.0); EOSINOPHILS PERCENT AUTO 0.8 % (1.0-3.0); LYMPHOCYTES PERCENT AUTO 16.6 % (20.5-50.1); MONOCYTES PERCENT AUTO 11.2 % (2-8); NEUTROPHILS PERCENT AUTO 71.2 % (42.2-75.2)
[2024-07-01 17:23] LABS: A/G RATIO 0.8; ALBUMIN 3.4 g/dL (3.4-5.0); ANION GAP 19.7 mEq/L (7-13); BILIRUBIN TOTAL 0.4 mg/dL (0.2-1.0); BUN/CREATININE RATIO 21.3 (No establ ref range); CALCIUM 9.9 mg/dL (8.5-10.1); CREATININE 0.75 mg/dL (0.55-1.02); EST CRCL DRUG DOSING (CG) 40.11 mL/min; MAGNESIUM 2.2 mg/dL (1.8-2.4); POTASSIUM,K 3.7 mmol/L (3.5-5.1); PROTEIN TOTAL,TP 7.7 g/dL (6.4-8.2)
[2024-07-01 17:29] LABS: BAND PERCENT MAN 2 %; EOSINOPHILS PERCENT MAN 1 % (1-3); LYMPHOCYTES % ATYPICAL MANUAL 2 %; LYMPHOCYTES PERCENT MAN 18 % (20-50); MONOCYTES PERCENT MAN 10 % (2-8); SEG NEUTROPHILS PERCENT MAN 67 % (42-75)
[2024-07-01] MEDS ORDERED: Lactated Ringers 1,000 ML IV ONE (17:53)
== END 2024-07-01 18:34 | disposition home or self-care (01) ==
LOC: DL.ED 16:34
DX: B34.9 Viral infection, unspecified (principal); E03.9 Hypothyroidism, unspecified; Z86.16 Personal history of COVID-19; Z79.890 Hormone replacement therapy; Z79.899 Other long term (current) drug therapy; Z79.01 Long term (current) use of anticoagulants
CPT/HCPCS: 80053; 83735; 85025; 86140; 87428; 96361; 96374; 99284; J1885; J7120

== ENCOUNTER 2024-07-03 16:09 | Emergency (ER) | payer MEDICARE, BC ==
[2024-07-03] MEDS ORDERED: Sodium Chloride 0.9% 10 ML Syringe FLUSH PRN (16:37)
[2024-07-03] MEDS: Ondansetron 4 MG/2 ML SDV IVPUSH ONE (16:44)
[2024-07-03 16:52] LABS: HEMATOCRIT 39.4 % (37.0-47.0); HEMOGLOBIN 12.8 g/dL (12.0-16.0); MEAN CORPUSCULAR HGB CONC 32.5 g/dL (33.0-35.0); MEAN CORPUSCULAR VOLUME 89.1 fL (80-100); PLATELET COUNT,PLT 345 10^3/uL (150-450); RED BLOOD CELL COUNT 4.42 10^6/uL (4.2-5.4); WHITE BLOOD CELL COUNT,WBC 14.2 10^3/uL (5.0-10.0)
[2024-07-03 16:54] LABS: BASOPHILS PERCENT AUTO 0.2 % (0.0-1.0); EOSINOPHILS PERCENT AUTO 0.6 % (1.0-3.0); LYMPHOCYTES PERCENT AUTO 11.3 % (20.5-50.1); NEUTROPHILS PERCENT AUTO 76.9 % (42.2-75.2)
[2024-07-03 17:03] LABS: EOSINOPHILS PERCENT MAN 1 % (1-3); LYMPHOCYTES PERCENT MAN 11 % (20-50); MONOCYTES PERCENT MAN 11 % (2-8); SEG NEUTROPHILS PERCENT MAN 77 % (42-75)
[2024-07-03 17:11] LABS: ALBUMIN 3.2 g/dL (3.4-5.0); ANION GAP 20.8 mEq/L (7-13); BILIRUBIN TOTAL 0.5 mg/dL (0.2-1.0); BUN/CREATININE RATIO 12.5 (No establ ref range); C-REACTIVE PROTEIN 6.06 ng/dL (<=0.50); CALCIUM 9.4 mg/dL (8.5-10.1); CREATININE 0.64 mg/dL (0.55-1.02); MAGNESIUM 1.9 mg/dL (1.8-2.4); POTASSIUM,K 3.8 mmol/L (3.5-5.1)
[2024-07-03 17:14] LABS: A/G RATIO 0.84
[2024-07-03] MEDS: Iopamidol 612 MG/ML 100 ML Bottle IVPUSH ONE (17:18)
== END 2024-07-03 20:27 | disposition home or self-care (01) ==
LOC: DL.ED 16:09
DX: A08.4 Viral intestinal infection, unspecified (principal); D72.829 Elevated white blood cell count, unspecified; I48.91 Unspecified atrial fibrillation; I10 Essential (primary) hypertension; E03.9 Hypothyroidism, unspecified; E66.9 Obesity, unspecified; Z68.22 Body mass index [BMI] 22.0-22.9, adult; Z86.16 Personal history of COVID-19; Z90.710 Acquired absence of both cervix and uterus; Z79.01 Long term (current) use of anticoagulants; Z79.899 Other long term (current) drug therapy
CPT/HCPCS: 36415; 74177; 80053; 83735; 85025; 86140; 96374; 99284; 99284-25; J2405; Q9967

== ENCOUNTER 2024-12-19 08:59 | Emergency (ER) | payer MEDICARE, BC ==
[2024-12-19] MEDS ORDERED: Sodium Chloride 0.9% 10 ML Syringe FLUSH PRN (09:01)
== END 2024-12-19 10:50 | disposition home or self-care (01) ==
LOC: DL.ED 08:59
DX: A09 Infectious gastroenteritis and colitis, unspecified (principal); I10 Essential (primary) hypertension; E66.9 Obesity, unspecified; Z68.22 Body mass index [BMI] 22.0-22.9, adult; Z86.16 Personal history of COVID-19; Z90.710 Acquired absence of both cervix and uterus; Z79.01 Long term (current) use of anticoagulants; Z79.899 Other long term (current) drug therapy
CPT/HCPCS: 87493; 96372; 99284; A9270; J1630